=== PATIENT | male | born 1980 | race Caucasian/White ===

== ENCOUNTER 2021-02-24 20:28 | Emergency (ER) | payer MEDICARE, OTHER ==
[~2021-02-24 20:28] MED LIST: LAMICTAL100 MG PO
[2021-02-25] MEDS ORDERED: AUGMENTIN 875-1 EACH PO (00:04)
== END 2021-02-25 01:43 | disposition home or self-care (01) ==
LOC: FER 20:28
DX: S60.454A Superficial foreign body of right ring finger, initial encounter (principal); Z88.8 Allergy status to other drugs, medicaments and biological substances; W45.8XXA Other foreign body or object entering through skin, initial encounter

== ENCOUNTER 2022-02-11 14:44 | Emergency (ER) | payer MEDICARE, OTHER ==
[~2022-02-11 14:44] MED LIST changes: +AUGMENTIN 875-1 EACH PO
== END 2022-02-11 17:39 | disposition home or self-care (01) ==
LOC: FER 14:44
DX: S00.83XA Contusion of other part of head, initial encounter (principal); S60.222A Contusion of left hand, initial encounter; S60.221A Contusion of right hand, initial encounter; I10 Essential (primary) hypertension; Z28.310 Unvaccinated for COVID-19; Z88.8 Allergy status to other drugs, medicaments and biological substances; W01.0XXA Fall on same level from slipping, tripping and stumbling without subsequent striking against object, initial encounter; Y92.480 Sidewalk as the place of occurrence of the external cause
CPT/HCPCS: 70450; 72125; 73130

== ENCOUNTER 2022-05-21 17:09 | Emergency (ER) | payer MEDICARE, OTHER | END 2022-05-21 18:18 | disposition home or self-care (01) | LOC: FER 17:09 | DX: S50.01XA Contusion of right elbow, initial encounter (principal); Z28.310 Unvaccinated for COVID-19; Z88.8 Allergy status to other drugs, medicaments and biological substances; Z91.09 Other allergy status, other than to drugs and biological substances; W19.XXXA Unspecified fall, initial encounter; Y92.481 Parking lot as the place of occurrence of the external cause | CPT/HCPCS: 73080; 73502 ==